=== PATIENT | female | born 1995 | race Caucasian/White ===

== ENCOUNTER 2023-03-30 12:35 | Emergency (ER) | payer OTHER ==
[~2023-03-30] VITALS: Ht 160 cm; Wt 81.6 kg
[2023-03-30 12:50] VITALS: BP 130/78
--- NOTE | 2023-03-30 12:50 | NUR ---
ARRIVAL PATIENT ARRIVED TO [facility] AMBULATORY, C/O RIGHT THUMB LACERATION TODAY, PATIENT STATES SHE WAS WASHING DISHES AND WHEN SHE WENT TO WASH THE KNIFE SHE CUT HER RIGHT THUMB, SMALL LACERATION NOTED, BLEEDING CONTROLLED AND BANDAGE IN PLACE, VITAL SIGNS TAKEN AND DOCTOR NOTIFIED OF PATIENT'S ARRIVAL.
--- NOTE | 2023-03-30 13:45 | ER.PDOC ---
General Chief Complaint: Extremities Stated Complaint: FINGER LAC Time seen by MD: 13:44 Source: patient Exam Limitations: no limitations History of Present Illness Initial Comments The patient was washing dishes and accidentally lacerated her right thumb on a knife. Allergies: Coded Allergies: No Known Allergies (Unverified , 08/15/15) Home Meds No Active Prescriptions or Reported Meds Past Medical History Medical History: no pertinent history, other Surgical History: cholecystectomy Social History Alcohol Use: none Drug Use: none Review of Systems Constitutional: denies chills, denies fever EENTM: denies eye pain, denies double vision Respiratory: denies cough, denies shortness of breath Cardiovascular: denies chest pain, denies syncope Gastrointestinal: denies abdominal pain, denies vomiting Genitourinary: denies dysuria, denies hematuria Musculoskeletal: denies back pain, denies joint pain Skin: denies lumps, denies rash Psychiatric/Neurological: denies anxiety, denies depressed Physical Exam General Appearance: alert, no distress Vascular: no vascular compromise Neuro/Psych: sensation nml, motor nml Central Exam: oriented X3, nml speech EENT: eyes nml inspection Neck/Back: nml inspection Respiratory: no resp distress CVS: reg rate & rhythm Comments Right thumb: Overlying the radial aspect of the lateral part of the IP joint is a 1 cm superficial laceration. ED LACERATION WOUND REPAIR # of Wounds/Lacerations Presen: 1 Wound Length (cm): 1 Anesthesia type: Not Applicable/None Wound's Depth, Shape: superficial, linear Irrigated w/ Saline (ccs): 10 Wound Explored: clean Wound Repaired With: dermabond, steri-strips Layer Closure?: No Sterile Dressing Applied?: Yes Results/Orders Results/Orders Vital Signs Date Time Temp Pulse Resp B/P (MAP) Pulse Ox O2 Delivery O2 Flow Rate FiO2 03/30/23 12:50 97.9 100 16 130/78 (95) 94 Room Air* 0 21 03/30/23 12:50 97.9 100 16 130/78 (95) 94 Room Air* 0 21 03/30/23 12:50 97.9 100 16 94 03/30/23 12:50 97.9 100 16 ER DEPART Departure Time of Disposition: 13:58 Disposition: 01 HOME / SELF CARE / HOMELESS Impression: Primary Impression: Thumb laceration Condition: Stable Patient Instructions: Laceration Care, Adult, Stitches, [place] or Skin Adhesive Strips, Lami-[id number] Referrals: PCP,UNKNOWN (PCP) PRIMARY CARE PROVIDER Scripts No Active Prescriptions or Reported Meds Duration or Time Spent with Pa: 10 DEZ SHEFFIELD MD Mar 30, 2023 13:45
[2023-03-30 14:19] VITALS: BP 133/52
== END 2023-03-30 14:20 | disposition home or self-care (01) ==
LOC: ER 12:35
DX: S61.011A Laceration without foreign body of right thumb without damage to nail, initial encounter (principal); Z90.49 Acquired absence of other specified parts of digestive tract; W26.0XXA Contact with knife, initial encounter; Y93.G1 Activity, food preparation and clean up; X58.XXXA Exposure to other specified factors, initial encounter; Y92.89 Other specified places as the place of occurrence of the external cause; Y99.8 Other external cause status
CPT/HCPCS: 99282; A4649